=== PATIENT | male | born 1950 | race Caucasian/White ===

== ENCOUNTER 2017-06-05 21:35 | Emergency (ER) | payer MEDICARE ==
[~2017-06-05] VITALS: Ht 175.3 cm; Wt 88.6 kg
[2017-06-05 22:36] LABS: BASO # 0.1 (0.02-0.10); EOS # 0.3 (0.04-0.40); EOS % 4.8 % (0.0-4.0); HEMATOCRIT 40.8 % (42.0-52.0); HEMOGLOBIN 13.9 g/dL (13.5-18.0); MEAN CELL VOLUME 86 fl (78-100); MEAN CORPUSCULAR HEMOGLOBIN 29 pg (27-31); MEAN CORPUSCULAR HGB CONC 34 g/dL (33-37); MEAN PLATELET VOLUME 10.1 fl (7.4-10.4); MONO # 0.6 (0.20-0.80); NEU # 2.7 (1.40-6.50); PLATELET COUNT 214 K/mm3 (130-400); RED BLOOD COUNT 4.74 M/mm3 (4.20-5.60); RED CELL DISTRIBUTION WIDTH 13.7 % (11.5-14.5); WHITE BLOOD COUNT 5.7 K/mm3 (4.8-10.8)
[2017-06-05 22:51] LABS: ALBUMIN 3.7 g/dL (3.5-5.0); BUN/CREATININE RATIO 25.2 (6.0-26.0); CALCIUM 9.6 mg/dL (8.4-10.2); POTASSIUM 3.8 mmol/L (3.6-5.0); TOTAL BILIRUBIN 0.5 mg/dL (0.2-1.3); TOTAL PROTEIN 6.5 g/dL (6.3-8.2)
[2017-06-05 23:28] VITALS: BP 137/86
== END 2017-06-05 23:28 | disposition home or self-care (01) ==
LOC: ED 21:35
PROVIDERS: Nurse Practitioner
DX: K30 Functional dyspepsia (principal); F17.290 Nicotine dependence, other tobacco product, uncomplicated; R00.2 Palpitations; R10.13 Epigastric pain; R07.89 Other chest pain